=== PATIENT | male | born 1935 | race Caucasian/White ===

== ENCOUNTER 2022-04-05 00:27 | Emergency (ER) | payer OTHER ==
[~2022-04-05 00:27] MED LIST: ALLOPURINOL100 MG PO; ASCORBIC ACID500 MG PO; ASPIRIN CHEWABL81 MG PO; CRESTOR5 MG PO; FERROUS SU300 MG/5 M PO; GENTLELAX510 GM PO; HYDROCODON-ACE1 EAC2 PO; LANTUS **100 UNITS/ SC; LANTUS100 UNIT/1 SC; LOPRESSOR25 MG PO; NORVASC5 MG PO; PANTOPRAZOLE SO20 MG PO; PRINIVIL20 MG PO; TRIAMCINOLONE 080 GM TOP; VALTREX 500MG500 MG PO; XARELTO10 MG PO; ZESTRIL2.5 MG PO
[2022-04-05 00:45] LABS: EOSINOPHIL 3.8 % (0-7); HCT 36.1 % (42.0-52.0); HGB 12.5 g/dl (13.2-18.0); LYMPHOCYTE 26.2 % (15-48); MCH 30.5 pg (25.0-31.0); MCHC 34.6 g/dL (32.0-36.0); MONOCYTE 3.8 % (0-12); MPV 8.8 fL (6.0-9.5); NEUTROPHIL 58.5 % (41-80); NRBC 0; PLT 157 K/uL (150-400); RDW 12.6 % (11.5-14.0); WBC 2.1 K/uL (4.0-10.5)
[2022-04-05 00:57] LABS: INR 2.12 (0.9-1.2)
[2022-04-05 01:07] LABS: ALBUMIN 3.3 g/dL (3.4-5.0); BILIRUBIN - TOTAL 0.5 mg/dL (0.2-1.0); BUN/CREAT RATIO (CALC) 12.4 RATIO; CREATININE 1.05 mg/dL (0.67-1.17); GLOBULIN (CALCULATION) 3.8 g/dL; POTASSIUM 4.4 mmol/L (3.5-5.1); TOTAL PROTEIN 7.1 g/dL (6.4-8.2)
[2022-04-05 01:30] LABS: CORONAVIRUS 2019 SARS-COV-2 NEGATIVE (NEGATIVE); INFLUENZA A NAA NEGATIVE (NEGATIVE)
[2022-04-05] MEDS ORDERED: CEPHALEXIN500 MG PO (03:14)
== END 2022-04-05 04:15 | disposition home or self-care (01) ==
LOC: FER 00:27
PROVIDERS: Internal Medicine
DX: R06.02 Shortness of breath (principal); R19.7 Diarrhea, unspecified; L03.114 Cellulitis of left upper limb; E11.9 Type 2 diabetes mellitus without complications; I10 Essential (primary) hypertension; Z20.822 Contact with and (suspected) exposure to COVID-19; Z28.310 Unvaccinated for COVID-19
CPT/HCPCS: 36415; 71045; 71250; 71275; 80053; 83605; 83880; 84145; 84484; 85025; 85610; 85730; 87040; 93005; J0696; J7120; Q9967; U0002